=== PATIENT | male | born 1960 | race Caucasian/White ===

== ENCOUNTER 2019-06-29 10:33 | Emergency (ER) | payer OTHER ==
[~2019-06-29] VITALS: Ht 170.2 cm; Wt 66.7 kg
[2019-06-29] MEDS ORDERED: TAMS0.4C PO (14:54)
[2019-06-29] MEDS ORDERED: KETO10TA2 PO (14:54)
== END 2019-06-29 15:20 | disposition home or self-care (01) ==
LOC: ER 10:33
DX: N20.1 Calculus of ureter (principal); R31.0 Gross hematuria